=== PATIENT | female | born 2000 | race Caucasian/White ===

== ENCOUNTER 2023-10-07 02:37 | Emergency (ER) | payer MEDICAID, SELFPAY ==
[2023-10-07 02:33] VITALS: BP 100/61; PULSE 94; RESP 18; TEMP 37.1; O2SAT 100
--- NOTE | 2023-10-07 02:47 | ED.GENADUL_ITS ---
Discharge Plan Disposition Patient Disposition: Home Condition: Good Discharge Details Clinical Impression: Headache ED Provider: Imelda Craft Home Meds and New Rx's Prescriptions: No Action No Known Home Meds Discharge Instructions Instructions: General Headache (ED) Additional Instructions: Call your primary care doctor today to schedule an appointment within one week to followup on your visit today. Take tylenol & ibuprofen at home for pain; follow the directions on the bottle. Return to the emergency department for new or worsening symptoms including fever , numbness, weakness, or if you have any other concerns. Medical Decision Making 22yo F with hx of headaches presenting via EMS for headache x 6 hours. No OTC meds. Vital signs and physical exam reassuring, normal neurologic exam. No red flags for headache, history and exam not concerning for SAH, meningitis, or intracranial mass; will not get labs or imaging. Will treat symptoms with tylenol, toradol, droperidol, IVF; patient requests something additional for sleep and so added 0.5mg lorazapam. On reassessment resting comfortably, eyes closed, in no distress. Upon waking reports feeling much improved, headache resolved. Discharged; discharge instructions and return precuations were reviewed with patient who verbalized understanding. All questions were answered and they are in full agreement with the plan. HPI General Mode of arrival: EMS . Date/Time Provider Initiated Documentation: 10/07/23 02:40 . Limitations to Documentation: no limitations . Information obtained by: patient . HPI Narrative: 22yo F with hx of headaches presenting via EMS for headache x 6 hours. Headache is dull, frontal, severe, and consistent with her prior headaches. Currently homeless, did not have access to tylenol which is what she typically takes for her headaches. No prior diagnosis of migraines. No nausea, vomiting, visual changes, numbness, tingling, weakness, or vertigo. It was not maximal at onset. It is not positional. No fevers, neck pain, or neck stiffness. She is otherwise in her usual state of health. Related Data Home Medications Medication Instructions Recorded Confirmed Unknown [No Known Home Meds] 10/07/23 10/07/23 Allergies Allergy/AdvReac Type Severity Reaction Status Date / Time haloperidol [From Haldol] AdvReac Unverified 10/07/23 02:39 General Stated Complaint: Headache MARCELINO: 3 Review of Systems Narrative: see HPI PFSH All Active Problems (Updated 10/07/23 @ 04:01 by Imelda Craft MD) Headache (Acute) Social History Smoking/Tobacco Use Status: Current every day Tobacco Type: e-cigarettes Smoking risk assessment performed?: Yes Alcohol Intake: current Alcohol Intake frequency: a few times a month Substance use type: does not use Do you feel safe at home: Yes Exam Narrative Exam Narrative: General: Alert, anxious Head: Normocephalic, atraumatic Neck: Trachea midline, ?Neck supple. ENT: ?MMM.? Cardiac: ?RRR, no murmurs appreciated Resp: No respiratory distress. CTAB. Abd: ?Soft, non-distended, nontender Extremities: ?No deformities.? No peripheral edema. Pysch: Rapid somewhat tangential speech; not pressured. Interuptable and redirectable. Denies SI/HI/AH/VH. Does not appear to be responding to internal stimuli. Neuro: ? GCS 15.? PERRL.? EOMI.? Fluent speech, no dysarthria. Motor- 5/5 strength symmetric bilateral upper and lower extremities Sensation- ?Intact to light touch and symmetric multiple dermatomes including upper and lower extremities Coordination- No dysmetria on finger to nose Gait/station: ?Normal stance.? No truncal ataxia. Steady gait with equal normal steps Course Vital Signs Vital signs: Vital Signs Temperature 37.1 C 10/07/23 02:33 Pulse 94 H 10/07/23 02:33 Respiratory Rate 18 10/07/23 02:33 Blood Pressure 100/61 10/07/23 02:33 Pulse Oximetry 100 10/07/23 02:33 Temperature 37.1 C 10/07/23 02:33 Pulse 94 H 10/07/23 02:33 Respiratory Rate 18 10/07/23 02:33 Respiratory Effort Normal 10/07/23 02:36 Blood Pressure 100/61 10/07/23 02:33 Pulse Oximetry 100 10/07/23 02:33 Oxygen Delivery Method Room Air 10/07/23 02:33 Oxygen Flow Rate 0 10/07/23 02:33 Pain Level 6 10/07/23 02:36
[2023-10-07] MEDS: Ketorolac 15 MG/ML VIAL IVP (02:59)
[2023-10-07] MEDS: Droperidol 5 MG/2 ML VIAL 1.25 MG IVP (02:59)
[2023-10-07] MEDS: Normal Saline 1,000 ML 1000 ML IV (03:00)
[2023-10-07] MEDS: LORazepam 2 MG/ML VIAL 0.5 MG IVP (03:00)
[2023-10-07 03:31] VITALS: RESP 14
[2023-10-07 04:10] VITALS: RESP 14
[2023-10-07 05:28] VITALS: RESP 16
== END 2023-10-07 06:11 | disposition home or self-care (01) ==
PROVIDERS: Emergency Provider Student in an Organized Health Care Education/Training Program
DX: R51.9 Headache, unspecified (principal); R11.0 Nausea
CPT/HCPCS: 96361; 96374; 96375; 99284; 99283; J1790; J1885; J2060

== ENCOUNTER 2023-10-07 14:16 | Emergency (ER) | payer MEDICAID, SELFPAY ==
[2023-10-07 14:22] VITALS: BP 119/77; PULSE 110; RESP 18; TEMP 36.3; O2SAT 95
[2023-10-07] MEDS: Ibuprofen 600 MG TAB PO (15:06)
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
[2023-10-07] MEDS: Ondansetron O.D.T. 4 MG TABEF, 3 TABS/BTL PO (16:06)
[2023-10-07] MEDS: Magnesium Gluconate 500 MG TAB PO (16:06)
[2023-10-07] MEDS: Acetaminophen 500 MG TAB 1000 MG PO (16:06)
[2023-10-07] MEDS: Promethazine 25 MG TAB PO (16:06)
[2023-10-07 16:07] VITALS: BP 119/77; PULSE 87; RESP 18; O2SAT 97
== END 2023-10-07 16:09 | disposition home or self-care (01) ==
PROVIDERS: Emergency Provider Emergency Medicine
DX: R51.9 Headache, unspecified (principal)
CPT/HCPCS: 99282; 99283